=== PATIENT | female | born 1975 | race Two or more races ===

== ENCOUNTER 2019-06-10 06:11 | Emergency (ER) | payer OTHER ==
[~2019-06-10] VITALS: Ht 162.6 cm; Wt 63.5 kg
[~2019-06-10 06:11] MED LIST: ALBU17AE27; FLUT12AE7; MONT10TA21
[2019-06-10] MEDS ORDERED: EPIN0.3P3 IM (06:29)
[2019-06-10] MEDS ORDERED: PARO20TA24 PO (06:29)
[2019-06-10] MEDS ORDERED: METF-960 PO (06:29)
[2019-06-10] MEDS ORDERED: ALBU8HFA IH (06:29)
[2019-06-10 07:00] VITALS: BP 128/79
== END 2019-06-10 07:50 | disposition home or self-care (01) ==
LOC: EMS 06:11
DX: S93.601A Unspecified sprain of right foot, initial encounter (principal); S90.511A Abrasion, right ankle, initial encounter; J45.909 Unspecified asthma, uncomplicated; Z91.010 Allergy to peanuts; Z91.018 Allergy to other foods; W19.XXXA Unspecified fall, initial encounter; Y93.89 Activity, other specified; Y92.89 Other specified places as the place of occurrence of the external cause; Y99.8 Other external cause status
CPT/HCPCS: 29515